=== PATIENT | female | born 1955 | race Caucasian/White ===

== ENCOUNTER → 2018-02-13 11:02 | Outpatient (CLI) | payer OTHER, SELFPAY ==
--- NOTE | 2018-02-13 | DI.MG.S_ITS ---
BILATERAL DIGITAL SCREENING MAMMOGRAM 3D/2D WITH CAD: 02/13/2018 CLINICAL: Routine screening. Comparison is made to exams dated: 12/19/2015 mammogram, 02/25/2015 mammogram, and 02/09/2015 mammogram - [facility]. There are scattered fibroglandular elements in both breasts. Current study was also evaluated with a Computer Aided Detection (CAD) system. There is a possibly enlarging partially imaged asymmetry in the right breast posterior depth inner region seen on the craniocaudal view only. There is a possibly enlarging partially imaged asymmetry in the left breast posterior depth inner region seen on the craniocaudal view only. No other significant masses or calcifications are seen in either breast. IMPRESSION: INCOMPLETE: NEEDS ADDITIONAL IMAGING EVALUATION The possibly enlarging partially imaged asymmetry in the right breast posterior depth inner region seen on the craniocaudal view only is indeterminate. Additional views with possible ultrasound are recommended. The possibly enlarging partially imaged asymmetry in the left breast posterior depth inner region seen on the craniocaudal view only is indeterminate. Additional views with possible ultrasound are recommended. This exam was interpreted at Station ID: [id number]. NOTE: For mammograms, a report in lay terms will be sent to the patient. Approximately 15% of breast malignancies will not be visualized mammographically. In the management of a palpable breast mass, a negative mammogram must not discourage biopsy of a clinically suspicious lesion. Electronically Signed By: Chuck Buchanan M.D. ecl/:02/16/2018 02:22:50 letter sent: Additional Imaging Needed ACR BI-RADS Category 0: Incomplete 3340F
== END ==
PROVIDERS: Visit Provider Nurse Practitioner Family
DX: Z12.31 Encounter for screening mammogram for malignant neoplasm of breast (principal)
CPT/HCPCS: 77063; 77067

== ENCOUNTER → 2018-08-13 13:49 | Outpatient (CLI) | payer OTHER, SELFPAY ==
--- NOTE | 2018-08-13 | DI.MG.S_ITS ---
BILATERAL DIGITAL DIAGNOSTIC MAMMOGRAM 3D/2D: 08/13/2018 CLINICAL: Additional evaluation requested from prior study. Comparison is made to exams dated: 02/13/2018 mammogram, 12/19/2015 mammogram, and 02/25/2015 mammogram - [facility]. There are scattered fibroglandular elements in both breasts. The asymmetry in the right breast posterior depth medial region seen on the craniocaudal view only is seen in additional views and appears unchanged from prior mamograms. The asymmetry in the left breast posterior depth medial region seen on the craniocaudal view only is seen in additional views and appears unchanged from prior mamograms. No other significant masses or calcifications are seen in either breast. IMPRESSION: The asymmetry in the right breast posterior depth medial region seen on the craniocaudal view only is consistent with a post-surgical scar and is benign. The asymmetry in the left breast posterior depth medial region seen on the craniocaudal view only is consistent with a post-surgical scar and is benign. There is no mammographic evidence of malignancy. A 1 year screening mammogram is recommended. This exam was interpreted at Station ID: [id number]. NOTE: For mammograms, a report in lay terms will be sent to the patient. Approximately 15% of breast malignancies will not be visualized mammographically. In the management of a palpable breast mass, a negative mammogram must not discourage biopsy of a clinically suspicious lesion. Electronically Signed By: Rimma feldman/:08/13/2018 14:28:44 letter sent: Normal Exam ACR BI-RADS Category 2: Benign Finding(s) 3342F
== END ==
PROVIDERS: Visit Provider Nurse Practitioner Family
DX: R92.8 Other abnormal and inconclusive findings on diagnostic imaging of breast (principal); N64.89 Other specified disorders of breast
CPT/HCPCS: 77066; G0279

== ENCOUNTER 2022-10-13 13:44 | Emergency (ER) | payer MEDICARE, OTHER, SELFPAY ==
[2022-10-13] VITALS (16 sets, daily range): BP systolic 104–132; BP diastolic 58–69; PULSE 53–62; RESP 15–40; O2SAT 99–100; BMI 22.4
--- NOTE | 2022-10-13 13:56 | DI.CT.S_ITS ---
PROCEDURE: CT CERVICAL SPINE WO CON INDICATIONS: hit head on eliquis, syncope later. TECHNIQUE: Noncontrast 3 mm thick sections acquired from the skull base to the T4 level. Sagittal and coronal reformats were then constructed. For radiation dose reduction, the following was used: automated exposure control, adjustment of mA and/or kV according to patient size. COMPARISON: None. FINDINGS: Image quality: Excellent. Bones: No fractures or dislocations. Visualized superior ribs are intact. C5-6 and C6-7 have disc space narrowing and degenerative disc disease. Soft tissues: Prevertebral soft tissues are normal in thickness. No paravertebral hematomas. No apical pneumothoraces. IMPRESSION: No acute traumatic abnormality of the cervical spine. Dictated by: Alex Davenport M.D. on 10/13/2022 at 13:33 Approved by: Alex Davenport M.D. on 10/13/2022 at 13:35
--- NOTE | 2022-10-13 13:56 | DI.RAD.S_ITS ---
PROCEDURE: XR CHEST 1V INDICATIONS: syncope TECHNIQUE: One view of the chest was acquired. COMPARISON: None. FINDINGS: Surgical changes and devices: None. Lungs and pleura: Lungs are clear. No pleural effusions or pneumothorax. Mediastinum: Mediastinal contours appear normal. Heart size is normal. Bones and chest wall: No suspicious bony lesions. Overlying soft tissues appear unremarkable. IMPRESSION: No acute cardiopulmonary abnormality. Dictated by: Alex Davenport M.D. on 10/13/2022 at 13:31 Approved by: Alex Davenport M.D. on 10/13/2022 at 13:32
--- NOTE | 2022-10-13 13:56 | DI.CT.S_ITS ---
PROCEDURE: CT HEAD/BRAIN WO CON INDICATIONS: hit head on eliquis, syncope later. TECHNIQUE: Noncontrast 4.5 mm thick angled axial sections acquired from the foramen magnum to the vertex, with coronal and sagittal reformats. For radiation dose reduction, the following was used: automated exposure control, adjustment of mA and/or kV according to patient size. COMPARISON: None. FINDINGS: Image quality: Excellent. CSF spaces: Basal cisterns are patent. No extra-axial fluid collections. Ventricles are normal in size and shape. Brain: No midline shift. No intracranial masses or hemorrhage. Asencio-white matter interface is normal. Skull and face: Calvarium and visualized facial bones are intact, without suspicious lesions. Sinuses: Visualized sinuses and mastoids are clear. IMPRESSION: No acute intracranial abnormality. Dictated by: Alex Davenport M.D. on 10/13/2022 at 13:33 Approved by: Alex Davenport M.D. on 10/13/2022 at 13:33
[2022-10-13 14:25] LABS: Add Manual Diff / Slide Review NO; Basophils Absolute Auto 0 /uL (0-100); Basophils Percent Auto 0.2 % (0-2); Eosinophils Absolute Auto 0 /uL (0-450); Eosinophils Percent Auto 0.3 % (2-4); Hemoglobin 13.1 g/dL (12.0-16.0); Lymphocytes Absolute Auto 1000 /uL (1100-4500); Lymphocytes Percent Auto 10.8 % (25-40); Mean Corpuscular HGB Conc 33.7 % (30-36); Mean Corpuscular Volume 92.1 fL (80-100); Monocytes Absolute Auto 700 /uL (0-900); Neutrophils Absolute Auto 7900 /uL (1500-7000); Neutrophils Percent Auto 81.7 % (50-75); Platelet Count 280 X10^3/uL (150-400); Red Blood Cell Count 4.23 X10^6/uL (4.0-5.2); Red Cell Distribution Width 13.7 % (11.6-14.8); White Blood Cell Count 9.6 X10^3/uL (4.5-11.0)
[2022-10-13] MEDS: SODIUM CHLORIDE 0.9% 1,000 ML 150 ML IV (14:28)
[2022-10-13 14:32] LABS: INR 1.2 (0.9-1.3); Prothrombin Time 13.2 SECONDS (10.1-12.7)
[2022-10-13 14:34] LABS: PTT Partial Thromboplastin Tim 31 SECONDS (26-36)
[2022-10-13 14:36] LABS: Alanine Aminotransferase 91 IU/L (<35); Albumin 4.2 g/dL (3.5-5.0); Albumin Globulin Ratio 1.3 (1.0-2.8); Alkaline Phosphatase 56 U/L (38-126); Aspartate Aminotransferase 56 IU/L (14-36); BUN Creatinine Ratio 22.7 (6-22); Bilirubin Total 0.4 mg/dL (0.2-1.3); Blood Urea Nitrogen 15 mg/dL (7-17); Calcium 8.7 mg/dL (8.4-10.2); Carbon Dioxide 28 mmol/L (22-32); Chloride 97 mmol/L (98-107); Creatine Kinase 45 U/L (30-135); Estimated Glomerular Filt Rate > 60 mL/min (>60); Globulin 3.3 g/dL (1.7-4.1); Glucose 116 mg/dL (80-110); HEMOLYSIS < 15 (0-50); Lipase 57 U/L (23-300); Potassium 4.2 mmol/L (3.4-5.1); Sodium 131 mmol/L (137-145); Total Protein 7.5 g/dL (6.3-8.2)
[2022-10-13 14:48] LABS: NT-proBNP (BNP-Adult 18+) 115 pg/mL (<125); Troponin I < 0.012 ng/mL (0.01-0.034)
--- NOTE | 2022-10-13 16:25 | ED.HEATRA ---
HPI - Head Injury General Chief complaint: Trauma Stated complaint: head injury / syncope post injury Time Seen by Provider: 10/13/22 13:49 Source: patient and EMS Mode of arrival: EMS Limitations: no limitations History of Present Illness HPI Narrative: This is a 67-year-old female with history of chronic hypotension on midodrine, prior pulmonary emboli which occurred while infected with COVID on Xarelto daily who presents with small laceration to the scalp and complaint of syncopal episode afterwards. 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 She states she had addendum bucket had on. She knew because of Eliquis she needed to have it evaluated. She walked about an acre to her house. Sat down her evaluated and saw a very small laceration. She states next thing she remembers she woke up on the floor of the porch. She states no sensation that she was going to pass out. She states she does pass out intermittently she is had 6 episodes in the last 4 years she is currently being worked up for it has a loop recorder in place, she is had a coronary angiogram in the past and has expected to follow up with electrophysiology in January she had 1 episode of heart rate in the 180s. Patient states occurs intermittently typically when weird or atypical situations like today occur. She states she did wake up felt very sweaty afterwards. She denies any chest pain, no shortness of breath no nausea no vomiting no issues with bowel movements or urination no loss of bowel or bladder control, no numbness, tingling or weakness. She states she is feeling improved at this time. She states she was started on midodrine 2.5 mg for persistent hypotension and typically is 106 systolic on the midodrine, she continues to be on Xarelto daily, patient states she would a pulmonary emboli a year ago. No prior surgeries other than tonsils and loop recorder being placed. No known drug allergies. Former smoker 38 years ago for about 15 years. No alcohol. No recreational drugs other than CBD for sleep. Patient's splits her time between [place] and [place]. Related Data Home Medications Medication Instructions Recorded Confirmed Fish Oil 1,000 mg PO ##0 09/10/11 VITAMIN D (Vitamin D3) 1,000 unit PO QDAY ##0 03/12/12 loratadine 10 mg tablet 10 mg PO QDAY ##0 09/03/12 midodrine 5 mg tablet 2.5 mg PO TID 10/13/22 10/13/22 rivaroxaban 20 mg tablet (Xarelto) 20 mg PO DAILY 10/13/22 10/13/22 Allergies Allergy/AdvReac Type Severity Reaction Status Date / Time latex [LATEX] Allergy Mild SKIN RASH Verified 10/13/22 13:53 Review of Systems Review of Systems ROS Unobtainable: All systems reviewed & are unremarkable except as noted in HPI and below Patient History Surgical History History of breast augmentation History of tonsillectomy Status post delivery Status post dilation and curettage Family History Father Heart disease Sister Age: 73 Nephrosis Exam Narrative Exam Narrative: GEN: Patient appears in no acute distress. HEAD: No evidence of trauma the than 0.5 cm laceration with small amount of ooze at the left upper parietal scalp, no raccoon/Barr sign. NECK: Nontender, painless range of motion, trachea midline Negative Nexus criteria, no midline line tenderness, distracting injury, altered mental status, neuro deficit, recent EtOH. EYES: PERRLA, EOMI ENT: External inspection normal, trachea is midline, Nares are clear, no septal hematoma, no dental or oral injury, airway is normal and with normal occlusion, No bony tenderness RESP: Chest is nontender and has symmetric movement, no ecchymosis, breath sounds are normal no crackles, wheezes or rales CVS: Heart sounds are normal, no murmur noted, No JVD. ABG/GI: Nontender, soft, normal bowel sounds, no distention, no organomegaly, pelvic rock is negative NEURO: Oriented AOx3, neuro is grossly intact, sensation and motor is normal all 4 extremities moving, cranial nerves II through XII are intact, GCS is 15 PSYCH: Normal mood and affect SKIN: Intact other than noted above, warm and dry, no crepitus and without decubitus BACK: No CVA tenderness, no vertebral tenderness, no step-off's, no crepitus EXT: Atraumatic, hips are nontender, no pedal edema, normal color and temperature, normal range of motion of extremities with normal tendon exam, 2+ pulses in all four extremities Initial Vital Signs Initial Vital Signs: Vital Signs Pulse Rate 55 L 10/13/22 13:45 Respiratory Rate 15 10/13/22 13:45 Blood Pressure 122/62 10/13/22 13:45 Pulse Oximetry 99 10/13/22 13:45 Oxygen Delivery Method Room Air 10/13/22 13:45 Procedures Laceration Repair Laceration 1: Site: scalp Side (If applicable): left Size (cm): 0.75 Description: linear Depth: simple, single layer Local Anesthetic: other anesthetic (topical lid/prilocaine) Pre-repair: wound explored, irrigated extensively and deep structures intact Skin layer closed with: lilly Number of sutures: 2 Course Orders Ordered: ED Orders 10/13/22 13:56 CT cervical spine wo con Stat CT head/brain wo con Stat XR chest 1V Stat 10/13/22 14:15 Complete Blood Count AUTO DIFF Stat Comprehensive Metabolic Panel Stat Lipase Stat NT-proBNP (BNP-Adult 18+) Stat PTT Partial Thromboplastin Dick Stat Prothrombin Time INR Stat Troponin & CK Cardiac Panel Stat 10/13/22 14:30 EKG-12 Lead Stat Discontinued Medications Aspirin (Aspirin 81 Mg Chew Tab) 324 mg PO NOW ONE Stop: 10/13/22 13:57 Last Admin: 10/13/22 14:15 Dose: Not Given Documented By: KLS Sodium Chloride (Normal Saline 0.9%) 1,000 mls @ 150 mls/hr IV CONT HERNAN Last Infusion: 10/13/22 17:52 Dose: 0 mls/hr Documented By: Admin: 10/13/22 14:28 Dose: 150 mls/hr Documented By: KLS Lidocaine/Prilocaine (Lidocaine/Prilocaine 5 Gm) 5 gm TOP NOW ONE Stop: 10/13/22 16:28 Last Admin: 10/13/22 16:33 Dose: 5 gm Documented By: CTS Vital Signs Vital signs: Vital Signs - 8 hr 10/13/22 13:45 10/13/22 13:53 10/13/22 13:55 Pulse Rate 55 L 53 L Respiratory Rate 15 20 Blood Pressure 122/62 107/65 Pulse Oximetry 99 100 Oxygen Delivery Method Room Air 10/13/22 13:55 10/13/22 13:56 10/13/22 13:56 Pulse Rate 56 L 55 L Respiratory Rate 23 22 Blood Pressure 106/66 Pulse Oximetry 99 100 Oxygen Delivery Method Room Air 10/13/22 14:00 10/13/22 14:01 10/13/22 14:01 Pulse Rate 57 L 58 L Respiratory Rate 22 20 Blood Pressure 132/58 L Pulse Oximetry 100 100 Oxygen Delivery Method 10/13/22 14:25 10/13/22 14:25 10/13/22 14:30 Pulse Rate 60 Respiratory Rate 40 H Blood Pressure 124/60 111/65 Pulse Oximetry 99 Oxygen Delivery Method 10/13/22 14:30 10/13/22 14:45 10/13/22 14:45 Pulse Rate 58 L 57 L Respiratory Rate 31 H 20 Blood Pressure 104/60 Pulse Oximetry 99 99 Oxygen Delivery Method 10/13/22 15:00 10/13/22 15:00 10/13/22 15:15 Pulse Rate 56 L Respiratory Rate 31 H Blood Pressure 117/60 112/61 Pulse Oximetry 100 Oxygen Delivery Method 10/13/22 15:15 10/13/22 15:30 10/13/22 15:31 Pulse Rate 56 L 57 L Respiratory Rate 20 27 H Blood Pressure 122/69 Pulse Oximetry 99 100 Oxygen Delivery Method 10/13/22 15:31 10/13/22 15:45 10/13/22 15:45 Pulse Rate 57 L 57 L Respiratory Rate 22 18 Blood Pressure 110/66 Pulse Oximetry 99 99 Oxygen Delivery Method 10/13/22 16:00 10/13/22 16:00 10/13/22 16:15 Pulse Rate 60 Respiratory Rate 21 Blood Pressure 115/67 113/65 Pulse Oximetry 100 Oxygen Delivery Method 10/13/22 16:15 Pulse Rate 62 Respiratory Rate 20 Blood Pressure Pulse Oximetry 100 Oxygen Delivery Method MDM - Head Injury Lab Data 10/13/22 14:15 10/13/22 14:15 Labs: Lab Results 10/13/22 10/13/22 10/13/22 Range/Units 14:15 14:15 14:15 WBC 9.6 (4.5-11.0) X10^3/uL RBC 4.23 (4.0-5.2) X10^6/uL Hgb 13.1 (12.0-16.0) g/dL Hct 39.0 (36-46) % MCV 92.1 (80-100) fL MCH 31.0 (26-34) PG MCHC 33.7 (30-36) % RDW 13.7 (11.6-14.8) % Plt Count 280 (150-400) X10^3/uL Neut % (Auto) 81.7 H (50-75) % Lymph % (Auto) 10.8 L (25-40) % [place] % (Auto) 7.0 (3-14) % Eos % (Auto) 0.3 L (2-4) % Baso % (Auto) 0.2 (0-2) % Neut # (Auto) 7900 H (7324-5764) /uL Lymph # (Auto) 1000 L (9174-1142) /uL [place] # (Auto) 700 (0-900) /uL Eos # (Auto) 0 (0-450) /uL Baso # (Auto) 0 (0-100) /uL PT 13.2 H (10.1-12.7) SECONDS INR 1.2 (0.9-1.3) APTT 31 (26-36) SECONDS Sodium 131 L (137-145) mmol/L Potassium 4.2 (3.4-5.1) mmol/L Chloride 97 L (98-107) mmol/L Carbon Dioxide 28 (22-32) mmol/L BUN 15 (7-17) mg/dL Creatinine 0.66 (0.52-1.04) mg/dL Estimated GFR > 60 (>60) mL/min BUN/Creatinine Ratio 22.7 H (6-22) Glucose 116 H (80-110) mg/dL Calcium 8.7 (8.4-10.2) mg/dL Total Bilirubin 0.4 (0.2-1.3) mg/dL AST 56 H (14-36) IU/L ALT 91 H (<35) IU/L Alkaline Phosphatase 56 (38-126) U/L Total Creatine Kinase 45 (30-135) U/L CK-MB (CK-2) TNP CK-MB (CK-2) Rel Index TNP Troponin I < 0.012 (0.01-0.034) ng/mL NT-Pro-B Natriuret Pep 115 (<125) pg/mL Total Protein 7.5 (6.3-8.2) g/dL Albumin 4.2 (3.5-5.0) g/dL Globulin 3.3 (1.7-4.1) g/dL Albumin/Globulin Ratio 1.3 (1.0-2.8) Lipase 57 (23-300) U/L Imaging Data CT scan - head: Radiologist's Impression: [address] [address] [address] Scan Report Signed Patient: Charlotte Zurita MR#: [id number] : 1955 Acct:[id number] Age/Sex: 67 / F Date of Service: 10/13/22 Loc: ED Accession Number: [id number] ?? Procedure: CT head/brain wo con Ordering Provider: Edith Dallas D.O. PROCEDURE:? CT HEAD/BRAIN WO CON ? INDICATIONS:? hit head on eliquis, syncope later. ? TECHNIQUE:? Noncontrast 4.5 mm thick angled axial sections acquired from the foramen magnum to the vertex, with coronal and sagittal reformats.? For radiation dose reduction, the following was used:? automated exposure control, adjustment of mA and/or kV according to patient size.? ? COMPARISON:? None. ? FINDINGS:? Image quality:? Excellent.? ? CSF spaces:? Basal cisterns are patent.? No extra-axial fluid collections.? Ventricles are normal in size and shape.? ? Brain:? No midline shift.? No intracranial masses or hemorrhage.? Asencio-white matter interface is normal.? ? Skull and face:? Calvarium and visualized facial bones are intact, without suspicious lesions.? ? Sinuses:? Visualized sinuses and mastoids are clear.? ? IMPRESSION:? No acute intracranial abnormality. ? ? ? Dictated by: Alex Davenport M.D. on 10/13/2022 at 13:33 ? ? Approved by: Alex Davenport M.D. on 10/13/2022 at 13:33?? CT - cervical spine: Radiologist's Impression: [address] [address] [address] Scan Report Signed Patient: Charlotte Zurita MR#: [id number] : 1955 Acct:[id number] Age/Sex: 67 / F Date of Service: 10/13/22 Loc: ED Accession Number: [id number] ?? Procedure: CT cervical spine wo con Ordering Provider: Edith Dallas D.O. PROCEDURE:? CT CERVICAL SPINE WO CON ? INDICATIONS:? hit head on eliquis, syncope later. ? TECHNIQUE:? Noncontrast 3 mm thick sections acquired from the skull base to the T4 level.? Sagittal and coronal reformats were then constructed.? For radiation dose reduction, the following was used:? automated exposure control, adjustment of mA and/or kV according to patient size.? ? COMPARISON:? None. ? FINDINGS:? Image quality:? Excellent.? ? Bones:? No fractures or dislocations.? Visualized superior ribs are intact.? C5-6 and C6-7 have disc space narrowing and degenerative disc disease. ? Soft tissues:? Prevertebral soft tissues are normal in thickness.? No paravertebral hematomas.? No apical pneumothoraces.? ? ? IMPRESSION:? No acute traumatic abnormality of the cervical spine. ? Dictated by: Alex Davenport M.D. on 10/13/2022 at 13:33 ? ? Approved by: Alex Davenport M.D. on 10/13/2022 at 13:35?? Chest x-ray: Radiologist's Impression: [place] [address] XRay Report Signed Patient: Charlotte Zurita MR#: [id number] : 1955 Acct:[id number] Age/Sex: 67 / F Date of Service: 10/13/22 Loc: ED Accession Number: [id number] ?? Procedure: XR chest 1V Ordering Provider: Edith Dallas D.O. PROCEDURE:? XR CHEST 1V ? INDICATIONS:? syncope ? TECHNIQUE:? One view of the chest was acquired.? ? COMPARISON:? None. ? FINDINGS:? ? Surgical changes and devices:? None.? ? Lungs and pleura:? Lungs are clear.? No pleural effusions or pneumothorax.? ? Mediastinum:? Mediastinal contours appear normal.? Heart size is normal.? ? Bones and chest wall:? No suspicious bony lesions.? Overlying soft tissues appear unremarkable.? ? IMPRESSION:? No acute cardiopulmonary abnormality. ? ? ? Dictated by: Alex Davenport M.D. on 10/13/2022 at 13:31 ? ? Approved by: Alex Davenport M.D. on 10/13/2022 at 13:32?? ECG Data Attestation: I personally reviewed and interpreted this ECG as follows: Prior ECG tracings: available for review Interpretation: Sinus bradycardia first-degree AV block rate of 56 VA 218, QRS of [address] changes otherwise. Patient has prior from 09/04/2021 which does not show any dynamic ST changes. MDM Narrative Medical decision making narrative: This is a 67-year-old female with history of chronic hypotension on midodrine and prior pulmonary emboli who had injury with metal oliverio that fell on her head give her a small scalp laceration she ambulated to her sat in the developed a syncopal episode. Patient states she does this somewhat frequently 6 times in the last 4 years. She follows regularly with Cardiology in his had extensive workup she is found to typically be hypotensive and is on midodrine 3 times daily, she is at her normal pressure today, patient states she called to be evaluated as she is on Eliquis head CT and C-spine are negative, chest x-ray does not show acute change. Labs overall shows sodium 131 chloride 97, glucose is 116 AST ALT slightly elevated negative troponin, BNP otherwise negative LFTs. Normal renal function, no anemia. EKG does show bradycardia first-degree AV block. Patient states she typically runs in the 50s to 60 range. Patient states often when they will be some sort of atypical episode like hitting her head she will have a syncopal episode. She did not have any chest pain or shortness of breath or other changes that make me highly suspicious for new pulmonary emboli she continues to be anticoagulated on Xarelto. Patient was able to ambulate in the department here. Had 1 staple to repair the scalp laceration. Discussed with patient if she has new chest pain or shortness of breath needs further workup but at this time felt appropriate for discharge. She has follow-up in place already. She notes that she will be staying in [place] overnight rather than returning to [place]. Discharge Plan Departure Patient Disposition: Home Clinical Impression: Laceration of scalp, Syncope Instructions: DI for Syncope in Adults (Fainting), DI for Laceration Repair -- [place] Activity Restrictions/Additional Instructions: Please follow-up with your physician for recheck and removal of your staple in 7-10 days Wound Care: Keep wound(s) clean and dry. Wash daily with soap and water only, no soaks. Do not use over the counter products (alcohol or peroxide)on the wounds unless instructed by a physician. If wound condition worsens (increased/expanding redness, developing fluid blisters, or worsening pain), either contact your doctor for an urgent re-assessment , or return to the Emergency Department. Return if fever greater than 100.4 Fahrenheit, increased swelling, increasing pain or worsening symptoms such as increased discharge or spreading redness. Use warm compresses 3 times daily for 20 minutes to the affected area. If there is packing in place do not pull it out, if it falls out do not try to replace it. Return if fever greater than 100.4 Fahrenheit, increased swelling, increasing pain or worsening symptoms such as increased discharge or spreading redness. Severe headaches, passing out, new chest pain, shortness of breath, diaphoresis or sweatiness, nausea or vomiting or other new or concerning changes. Continue your home medications as prescribed. Prescriptions: No Action Fish Oil 1,000 mg PO Qty: 0 VITAMIN D (Vitamin D3) 1,000 unit PO QDAY Qty: 0 loratadine 10 MG tablet 10 mg PO QDAY Qty: 0 Xarelto 20 mg tablet 20 mg PO DAILY midodrine 5 mg tablet 2.5 mg PO TID Patient Comments: TAKE ONE-HALF(1/2) TABLET BY MOUTH THREE(3) TIMES DAILY. DO NOT TAKE WITHIN FOUR(4) HOURS OF BEDTIME. THESE ARE 5MG TABLETS Referrals: Sabrina Flynn ARNP [Primary Care Provider] - Stand Alone Forms: Patient Portal/API
[2022-10-13] MEDS: LIDOCAINE/PRILOCAINE 5 GM TOP (16:33)
--- NOTE | 2022-10-13 17:46 | PC.NURSE ---
[address] Dallas in pt's L parietal head.
== END 2022-10-13 17:53 | disposition home or self-care (01) ==
PROVIDERS: Emergency Provider Emergency Medicine; Family Provider Nurse Practitioner; PCP Nurse Practitioner
DX: S01.01XA Laceration without foreign body of scalp, initial encounter (principal); R55 Syncope and collapse; Z79.01 Long term (current) use of anticoagulants
CPT/HCPCS: 36415; 70450; 71045; 72125; 80053; 82550; 83690; 83880; 84484; 85025; 85610; 85730; 93005; 96360; 99284; 99285